=== PATIENT | male | born 1990 | race African-American/Black ===

== ENCOUNTER 2016-11-24 20:07 | Emergency (ER) | payer OTHER ==
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
== END 2016-11-24 23:00 | disposition home or self-care (01) ==
LOC: ER 20:07
DX: S33.5XXA Sprain of ligaments of lumbar spine, initial encounter (principal); Z79.899 Other long term (current) drug therapy; V43.62XA Car passenger injured in collision with other type car in traffic accident, initial encounter